=== PATIENT | female | born 1980 | race Two or more races ===

== ENCOUNTER 2024-05-25 20:55 | Emergency (ER) | payer OTHER ==
[~2024-05-25] VITALS: Ht 157.5 cm; Wt 60.9 kg
[2024-05-25 22:32] VITALS: TEMP 97.8
[2024-05-25] MEDS: KETOROLAC TROMETHAMINE 30 MG/ML VIAL IM ONE (22:49)
[2024-05-25] MEDS: LIDOCAINE 5% TRANSDERMAL PATCH TD ONE (23:45)
[2024-05-26] MEDS ORDERED: LIDO700A15 TP (00:46)
[2024-05-26] MEDS ORDERED: CYCL-448 PO (00:46)
[2024-05-26 00:56] VITALS: BP 129/70; PULSE 74; RESP 18; O2SAT 100
== END 2024-05-26 00:56 | disposition home or self-care (01) ==
LOC: EMS 20:55
DX: M54.50 Low back pain, unspecified (principal); E11.9 Type 2 diabetes mellitus without complications
CPT/HCPCS: 99283; 82962; 72100; 96372; J1885

== ENCOUNTER 2024-12-30 17:44 | Emergency (ER) | payer OTHER ==
[~2024-12-30] VITALS: Ht 162.6 cm; Wt 68.2 kg
[~2024-12-30 17:44] MED LIST: CYCL-448 PO; LIDO-57 TP
[2024-12-30 17:56] VITALS: TEMP 98.2
[2024-12-30] MEDS ORDERED: METF-1211 PO (17:56)
[2024-12-30] MEDS ORDERED: PARO-37 PO (17:59)
[2024-12-30 18:20] LABS: BASOPHILS % (AUTO) 0.5 % (0.0-2.0); EOSINOPHILS % (AUTO) 0.8 % (1.0-6.0); HEMATOCRIT 39.6 % (36-46); HEMOGLOBIN 13.4 g/dL (12.0-16.0); LYMPHOCYTES # (AUTO) 2.7 K/uL (1.0-4.8); LYMPHOCYTES % (AUTO) 38.8 % (22.0-44.0); MEAN CORPUSCULAR HEMOGLOBIN 30.4 pg (26.0-34.0); MEAN CORPUSCULAR HGB CONC 33.9 G/dL (31.0-37.0); MEAN CORPUSCULAR VOLUME 90 fL (80-100); MONOCYTES # (AUTO) 0.5 K/uL (0.1-1.0); MONOCYTES % (AUTO) 6.7 % (2.0-9.0); NEUTROPHILS # (AUTO) 3.7 K/uL (1.8-7.7); NEUTROPHILS % (AUTO) 53.2 % (40.0-70.0); PLATELET COUNT (AUTO) 384 K/uL (150-450); RED BLOOD CELL COUNT(AUTO) 4.41 MIL/uL (4.00-5.20); RED CELL DISTRIBUTION WIDTH 14.4 % (11.5-14.5)
[2024-12-30] MEDS: KETOROLAC TROMETHAMINE 60 MG/2 ML VIAL IM ONE (18:20)
[2024-12-30] MEDS: ACETAMINOPHEN/CODEINE 300-30 MG TABLET PO ONE (18:21)
[2024-12-30] MEDS: LORazepam 1 MG TABLET PO ONE (18:21)
[2024-12-30 18:25] LABS: ANION GAP 8 mmol/L (8-16); CALCIUM, TOTAL 9.3 mg/dL (8.8-10.5); CARBON DIOXIDE 28 mmol/L (22-29); CHLORIDE 103 mmol/L (98-107); CREATININE 0.82 mg/dL (0.60-1.30); GLOMERULAR FILTR. RATE CALC > 60 mL/min (>60); GLUCOSE,RANDOM 106 mg/dL (70-110); POTASSIUM 4.2 mmol/L (3.5-5.1); SODIUM SERUM 139 mmol/L (136-145); UREA NITROGEN, BLOOD 14 mg/dL (7-18)
[2024-12-30] MEDS: SODIUM CHLORIDE 0.9% 1,000 ML IV ONE ×2 (18:40→20:13)
[2024-12-30] MEDS: MECLIZINE HCL 25 MG TABLET PO ONE (19:42)
[2024-12-30 19:57] VITALS: BP 119/63; PULSE 60; RESP 16; O2SAT 99
[2024-12-30] MEDS ORDERED: ACET-66 PO (21:55)
[2024-12-30] MEDS ORDERED: IBUP-1554 PO (21:55)
[2024-12-30] MEDS ORDERED: MECL-134 PO (21:55)
== END 2024-12-30 22:35 | disposition home or self-care (01) ==
LOC: EMS 17:48
DX: R51.9 Headache, unspecified (principal); R42 Dizziness and giddiness; E11.9 Type 2 diabetes mellitus without complications; Z88.0 Allergy status to penicillin; Z79.899 Other long term (current) drug therapy
CPT/HCPCS: 99285; 96360; 70450; 96361; 80048; 84703; 85025; 36415; 96372; J1885; J7030

== ENCOUNTER 2025-02-20 15:14 | Emergency (ER) | payer OTHER ==
[~2025-02-20] VITALS: Ht 152.4 cm; Wt 62.0 kg
[~2025-02-20 15:14] MED LIST changes: +ACET-66 PO; -CYCL-448 PO; +IBUP-1554 PO; -LIDO-57 TP; +MECL-134 PO; +METF-1211 PO; +PARO-37 PO
[2025-02-20 15:53] LABS: PLATELET COUNT (AUTO) 400 K/uL (150-450); RED BLOOD CELL COUNT(AUTO) 4.33 MIL/uL (4.00-5.20); RED CELL DISTRIBUTION WIDTH 14.4 % (11.5-14.5); WHITE BLOOD COUNT (AUTO) 7.1 K/uL (4.5-11.0)
[2025-02-20 16:09] LABS: CALCIUM, TOTAL 9.0 mg/dL (8.8-10.5); CREATININE 0.93 mg/dL (0.60-1.30); GLOMERULAR FILTR. RATE CALC > 60 mL/min (>60); GLUCOSE,RANDOM 97 mg/dL (70-110); SODIUM SERUM 137 mmol/L (136-145); UREA NITROGEN, BLOOD 9 mg/dL (7-18)
[2025-02-20 16:12] LABS: TROPONIN I-HIGH SENSITIVITY 4 ng/L (<51)
[2025-02-20 16:14] LABS: ASPARTATE AMINOTRANSFERASE 15 U/L (15-37); TOTAL PROTEIN, SERUM 7.6 g/dL (6.4-8.2)
[2025-02-20] MEDS: MECLIZINE HCL 25 MG TABLET PO ONE (17:42)
[2025-02-20] MEDS: ONDANSETRON HCL 4 MG/2 ML VIAL IVP ONE (17:42)
[2025-02-20] MEDS: SODIUM CHLORIDE 0.9% 1,000 ML IV ONE (17:42)
[2025-02-20 18:23] LABS: TROPONIN I-HIGH SENSITIVITY 4 ng/L (<51)
[2025-02-20 19:47] VITALS: BP 113/79; PULSE 85; RESP 18; TEMP 98.1; O2SAT 99
[2025-02-20] MEDS ORDERED: IBUP-1492 PO (19:48)
[2025-02-20] MEDS ORDERED: MECL-134 PO (20:06)
== END 2025-02-20 20:25 | disposition home or self-care (01) ==
LOC: EMS 15:14
DX: R51.9 Headache, unspecified (principal); R42 Dizziness and giddiness; R07.89 Other chest pain; F41.9 Anxiety disorder, unspecified; E11.9 Type 2 diabetes mellitus without complications; Z88.0 Allergy status to penicillin; Z79.899 Other long term (current) drug therapy
CPT/HCPCS: 99285; 96374; 71045; 96361; 80053; 84484; 84702; 85025; 85610; 36415; 93005; J2405; J7030

== ENCOUNTER 2025-05-22 12:57 | Emergency (ER) | payer OTHER ==
[~2025-05-22] VITALS: Ht 160 cm; Wt 66.4 kg
[~2025-05-22 12:57] MED LIST changes: +IBUP-1492 PO
[2025-05-22 12:59] VITALS: BP 133/59; PULSE 83; RESP 18; TEMP 98.2; O2SAT 97
[2025-05-22 13:26] LABS: GLUCOMETER DEV NAME(LOC) ERT.7; GLUCOSE,POINT OF CARE 175 MG/DL (70-110)
[2025-05-22 13:47] LABS: PLATELET COUNT (AUTO) 398 K/uL (150-450); RED BLOOD CELL COUNT(AUTO) 4.14 MIL/uL (4.00-5.20); RED CELL DISTRIBUTION WIDTH 14.1 % (11.5-14.5); WHITE BLOOD COUNT (AUTO) 6.5 K/uL (4.5-11.0)
[2025-05-22 13:55] LABS: CALCIUM, TOTAL 8.4 mg/dL (8.8-10.5); CREATININE 0.81 mg/dL (0.60-1.30); GLOMERULAR FILTR. RATE CALC > 60 mL/min (>60); GLUCOSE,RANDOM 182 mg/dL (70-110); SODIUM SERUM 133 mmol/L (136-145); UREA NITROGEN, BLOOD 8 mg/dL (7-18)
[2025-05-22 14:04] LABS: TROPONIN I-HIGH SENSITIVITY Less Than 4 ng/L (<51)
[2025-05-22] MEDS: ACETAMINOPHEN 500 MG TABLET PO ONE (14:42)
== END 2025-05-22 15:38 | disposition home or self-care (01) ==
LOC: EMS 13:00
DX: R07.89 Other chest pain (principal); E11.9 Type 2 diabetes mellitus without complications; Z79.84 Long term (current) use of oral hypoglycemic drugs; Z79.899 Other long term (current) drug therapy; Z88.0 Allergy status to penicillin
CPT/HCPCS: 71045; 80048; 82962; 84484; 84703; 85025; 93005; 99285; 36415-L1; 36415-TC